=== PATIENT | male | born 1945 | race American Indian/Alaskan Native ===

== ENCOUNTER 2017-09-18 11:12 | Outpatient (CLI) | payer MEDICARE ==
--- NOTE | 2017-09-18 11:26 | XRay Report ---
CHEST 2 VIEWS INDICATION: Cough. COMPARISON: None similar at this institution. FINDINGS: PA and lateral chest radiographs demonstrate top normal heart size. Post CABG changes. Altered left hemidiaphragmatic contour, slightly elevated laterally with mild possible scarring about the left lateral costophrenic angle. No pleural effusions or CHF, though slight fluid or thickening along the major fissures noted. CONCLUSION: Borderline cardiomegaly and post CABG changes, as described. Thank you for the opportunity to participate in this patient's care.
== END 2017-09-18 11:13 | disposition home or self-care (01) ==
LOC: SPVIMAG 11:12
DX: R05 Cough (principal); Z95.1 Presence of aortocoronary bypass graft
CPT/HCPCS: 71020